=== PATIENT | female | born 1970 | race Two or more races ===

== ENCOUNTER 2018-02-05 07:55 | Outpatient (CLI) | payer OTHER | END 2018-02-05 23:59 | disposition home or self-care (01) | LOC: WOU 07:55 | PROVIDERS: ATTEND Specialist | DX: Z01.818 Encounter for other preprocedural examination (principal); T86.828 Other complications of skin graft (allograft) (autograft); Z90.13 Acquired absence of bilateral breasts and nipples; Z80.9 Family history of malignant neoplasm, unspecified | CPT/HCPCS: A6253; A6402; G0463 ==